=== PATIENT | male | born 1970 | race Hispanic/Latino ===

== ENCOUNTER 2020-11-04 07:22 | Day surgery (SDC) | payer OTHER ==
[2020-11-04] MEDS ORDERED: Ringers Lactate 1,000 ML IV ONE (07:47)
[2020-11-04] MEDS ORDERED: CEFAZOLIN/SWI 1gm 1 GM/10 ML SYR ONE (07:47)
[2020-11-04] MEDS: BUPIVACAINE 0.25% PF 30 ML VIAL ONE ×2 (08:11→08:48)
[2020-11-04] MEDS ORDERED: MIDAZOLAM HCL 2 MG/2 ML INJ ONE (08:36)
[2020-11-04] MEDS ORDERED: propofoL 200 MG/20 ML VIAL IV ONE (08:36)
[2020-11-04] MEDS ORDERED: FENTANYL CITR 100 MCG/2 ML ONE ×2 (08:36→08:37)
[2020-11-04] MEDS ORDERED: LIDOCAINE 1% MPF 2 ML AMPULE ONE (08:37)
[2020-11-04] MEDS ORDERED: ONDANSETRON 4 MG/2 ML VIAL ONE (09:04)
[2020-11-04 09:55] VITALS: O2SAT 100
--- NOTE | 2020-11-04 10:06 | P.OP ---
Preoperative diagnosis: RIGHT Shoulder Lipoma Postoperative diagnosis: RIGHT Shoulder Lipoma Primary procedure: Excision of RIGHT Shoulder Lipoma Anesthesia: GETA + Local Estimated blood loss: <5cc Specimen: lipomatous mass ~ 7cm x 4cm Findings: Mass was attached to infraspinatus, supraspinatus muscle Complications: None Transferred to: Recovery Room Condition: Good
[2020-11-04] MEDS ORDERED: HYDROCODONE/APAP 5/325 MG TAB ONE (11:15)
[2020-11-04 11:43] VITALS: BP 151/84; TEMP 96.8
--- NOTE | 2020-11-04 12:26 | OP ---
Date of Procedure: 11/04/2020 Surgeon: Gee Aguiar MD, Preoperative Diagnosis: Right shoulder lipoma. Postoperative Diagnosis: Right shoulder lipoma. Procedure Performed: Excision of right shoulder lipoma. Anesthesia: General endotracheal plus local with 0.25% Marcaine. Estimated Blood Loss: Less than 5 cc. Specimen: Lipomatous mass approximately 7 cm x 4 cm x 3 cm. Findings: Mass was attached to infraspinatus muscles as well as small amount of supraspinatus muscle s. Complications: None. Disposition: The patient was transferred to recovery room in good condition. Procedure In Detail: After informed was obtained, the patient was brought to the operating room, pre pped and draped in the usual sterile fashion. After adequate anesthesia was achieved, a linear incis ion was made down through subcutaneous tissues after appropriately anesthetizing the skin over the ri ght scapular area. There was a mass that ran obliquely in an upward to outward direction along the i nfraspinatus and supraspinatus regions near the spine of the scapula. I dissected down through subcu taneous tissues and palpated the mass under the muscular plane. I had to open the muscular plane to access the lipomatous mass, which was predominantly removed by blunt dissection, but a combination of sharp and electrocautery dissection was used as well. At this point, I circumferentially removed th e mass, sent it off for pathologic examination. I then inspected the area for hemostasis. No hemost asis was required. The area was copiously irrigated multiple times and dried until completely clear. I then closed the muscle fascia over the anterior surface of the tissues using an interrupted 3-0 V icryl suture and closed the deep dermal plane using the same set 3-0 Vicryl in interrupted fashion. The skin was closed with 4-0 Monocryl in interrupted fashion. Dermabond was placed over top. The pa tient tolerated the procedure well without evidence of complication and transferred to PACU in good c ondition. All counts were correct at the end of the case. BRANDIE/GOKUL Voice ID: [id number] Report ID: [id number]
== END 2020-11-04 11:12 | disposition home or self-care (01) ==
LOC: OR 07:22
PROVIDERS: ATTEND Surgery
PROC: 0JBD0ZZ Excision of Right Upper Arm Subcutaneous Tissue and Fascia, Open Approach (ICD-10-PCS; principal; 2020-11-04 08:30)
DX: D17.21 Benign lipomatous neoplasm of skin and subcutaneous tissue of right arm (principal)
CPT/HCPCS: 88304; 11406; J2704; J2250; J3010; J0690; J7120; J2405